=== PATIENT | female | born 1950 | race Caucasian/White ===

== ENCOUNTER 2017-09-21 19:44 | Emergency (ER) | payer MEDICARE ==
[~2017-09-21] VITALS: Ht 157.5 cm; Wt 90.7 kg
[2017-09-21 20:26] LABS: BASOPHILS ABSOLUTE AUTO 0.04 K/mm3 (0.00-0.23); BASOPHILS PERCENT AUTO 0 % (0-2); EOSINOPHILS ABSOLUTE AUTO 0.23 K/mm3 (0.00-0.68); EOSINOPHILS PERCENT AUTO 2 % (0-6); Hemoglobin 12.9 g/dL (11.5-16.0); IMMATURE GRAN ABSOLUTE AUTO 0.03 K/mm3 (0.00-0.10); IMMATURE GRAN PERCENT AUTO 0 % (0-1); LYMPHOCYTES ABSOLUTE AUTO 1.95 K/mm3 (0.84-5.20); LYMPHOCYTES PERCENT AUTO 16 % (21-46); MONOCYTES ABSOLUTE AUTO 0.79 K/mm3 (0.16-1.47); MONOCYTES PERCENT AUTO 7 % (4-13); Mean Corpuscular HGB 29.2 pg (26.0-34.0); Mean Corpuscular HGB Conc 32.3 g/dL (31.5-36.5); Mean Corpuscular Volume 91 fL (80-100); Mean Platelet Volume 10.6 fL (9.1-12.4); NEUTROPHILS ABSOLUTE AUTO 8.95 K/mm3 (1.96-9.15); NEUTROPHILS PERCENT AUTO 75 % (41-73); Platelet Count 278 K/mm3 (150-400); RDW Coefficient Variation 13.1 % (11.7-14.2); RDW Standard Deviation 43.1 fL (35.1-46.3); Red Blood Cell Count 4.42 M/mm3 (3.80-5.20); White Blood Cell Count 11.99 K/mm3 (4.00-11.30)
[2017-09-21 20:44] LABS: Alanine Aminotransfer (ALT/SGP 82 U/L (12-78); Albumin, Blood 3.9 g/dL (3.4-5.0); Albumin/Globulin Ratio 0.9 (0.8-1.8); Alk Phos 121 U/L (50-136); Anion Gap 10 mmol/L (6-16); Aspartate Aminotrans (AST/SGOT 43 U/L (12-37); Blood Urea Nitrogen 8 mg/dL (8-24); Bun/Creatinine Ratio 12.7 (12.0-20.0); CO2, Blood 25 mmol/L (21-32); Calcium, Blood 9.1 mg/dL (8.5-10.1); Chloride, Blood 105 mmol/L (98-108); Creatinine, Blood 0.63 mg/dL (0.40-1.00); Globulin, Blood 4.2 g/dL (2.2-4.0); Glomerular Filtration Rate >60 (60-); Glucose, Blood 94 mg/dL (70-99); Potassium, Blood 3.8 mmol/L (3.5-5.5); Sodium, Blood 140 mmol/L (136-145); Total Protein, Blood 8.1 g/dL (6.4-8.2)
[2017-09-21] MEDS ORDERED: ATOR10 (21:25)
[2017-09-21] MEDS ORDERED: Zantac150 MG (21:25)
[2017-09-21] MEDS ORDERED: CELE200 (21:26)
[2017-09-21] MEDS ORDERED: ZOLP5 (21:26)
[2017-09-21] MEDS ORDERED: Aspir 8181 MG (21:26)
[2017-09-21] MEDS ORDERED: CETI5 (21:27)
[2017-09-21 22:46] LABS: Source, Urine Clean Catch
[2017-09-21 22:49] LABS: Bilirubin, Urine Neg (Neg); Blood, Urine Neg (Neg); Glucose Qualitative, Urine Neg (Neg); Ketones, Urine 3+ (Neg); Leukocyte Esterase, Urine Neg (Neg); Nitrite, Urine Neg (Neg); Protein, Urine Neg (Neg); Specific Gravity, Urine 1.015 (1.003-1.022); Urobilinogen, Urine NORM (Normal); pH, Urine 6.5 (5.0-8.0)
[2017-09-21 22:55] LABS: Appearance, Urine Clear (Clear); Color, Urine Pale Yellow (P-Yellow)
[2017-09-22] MEDS ORDERED: Zofran Odt4 MG PO (00:29)
[2017-09-22] MEDS ORDERED: Norco 5-325 Ta1 EACH PO (00:29)
[2017-09-22] MEDS ORDERED: Augmentin 875-1 EACH PO (00:29)
== END 2017-09-22 00:55 | disposition home or self-care (01) ==
LOC: ER 19:44
PROVIDERS: Emergency Medicine
DX: K57.32 Diverticulitis of large intestine without perforation or abscess without bleeding (principal); Z88.2 Allergy status to sulfonamides; Z91.048 Other nonmedicinal substance allergy status; Z88.5 Allergy status to narcotic agent; Z79.899 Other long term (current) drug therapy; Z79.82 Long term (current) use of aspirin; Z79.2 Long term (current) use of antibiotics
CPT/HCPCS: 74177; 80053; 81003; 83690; 85025; 96361; 96374; 96375; 99284; J2405; J3010; J7030; Q9967

== ENCOUNTER → 2018-04-27 | Outpatient (CLI) | payer MEDICARE ==
[~2018-04-27] MED LIST: ATOR10; Aspir 8181 MG; Augmentin 875-1 EACH PO; CELE200; CETI5; Norco 5-325 Ta1 EACH PO; ZOLP5; Zantac150 MG; Zofran Odt4 MG PO
== END | disposition home or self-care (01) ==
LOC: LAB SHORT 11:16 → PLD 11:16
DX: D22.5 Melanocytic nevi of trunk (principal)
CPT/HCPCS: 88305; 88342

== ENCOUNTER → 2018-04-28 | Outpatient (CLI) | payer MEDICARE | END | disposition home or self-care (01) | LOC: LAB SHORT 08:00 → LAB EV 08:00 | DX: R30.0 Dysuria (principal) | CPT/HCPCS: 87077; 87086; 87186 ==

== ENCOUNTER → 2018-05-31 | Outpatient (CLI) | payer MEDICARE | END | disposition home or self-care (01) | LOC: PLD 15:45 → LAB SHORT 15:45 | DX: C43.59 Malignant melanoma of other part of trunk (principal) | CPT/HCPCS: 88305 ==

== ENCOUNTER → 2018-09-13 | Outpatient (CLI) | payer MEDICARE ==
[~2018-09-13] MED LIST changes: +ABAT250V; +TRAZ50
== END | disposition home or self-care (01) ==
LOC: LAB EV 12:10 → LAB SHORT 12:10
DX: R30.0 Dysuria (principal)
CPT/HCPCS: 87086

== ENCOUNTER 2018-09-14 12:13 | Day surgery (SDC) | payer MEDICARE ==
[~2018-09-14] VITALS: Ht 157.5 cm; Wt 87.7 kg
[~2018-09-14 12:13] MED LIST changes: -ABAT250V; -TRAZ50
[2018-09-14] MEDS ORDERED: TRAZ50 (13:11)
[2018-09-14] MEDS ORDERED: ABAT250V (13:11)
--- NOTE | 2018-09-14 16:01 | NUR ---
09/14/18 1601 Alie Awan (Amina UPON WAKING IN PROCEDURE ROOM, PT PULLED IV OUT OF RIGHT HAND. ENTIRE CATHETER AND CORRELATING PIECES WERE INTACT WITHOUT TEARING OR BREAKING OFF. PRESSURE APPLIED TO SITE WHILE GAUZE & COBAN WAS APPLIED. PT DENIED PAIN OR SORENESS AFTER ASSESSMENT IN PT'S ROOM.
== END 2018-09-14 15:40 | disposition home or self-care (01) ==
LOC: ORSCSDS 12:13
PROVIDERS: Internal Medicine Gastroenterology
PROC: 0DBM8ZX Excision of Descending Colon, Via Natural or Artificial Opening Endoscopic, Diagnostic (ICD-10-PCS; principal; 2018-09-14 13:30)
PROC: 0DBH8ZX Excision of Cecum, Via Natural or Artificial Opening Endoscopic, Diagnostic (ICD-10-PCS; principal; 2018-09-14 13:30)
PROC: 0DBK8ZX Excision of Ascending Colon, Via Natural or Artificial Opening Endoscopic, Diagnostic (ICD-10-PCS; principal; 2018-09-14 13:30)
PROC: 0DBL8ZX Excision of Transverse Colon, Via Natural or Artificial Opening Endoscopic, Diagnostic (ICD-10-PCS; principal; 2018-09-14 13:30)
PROC: 0DB68ZX Excision of Stomach, Via Natural or Artificial Opening Endoscopic, Diagnostic (ICD-10-PCS; 2018-09-14 13:30)
PROC: 0D758ZZ Dilation of Esophagus, Via Natural or Artificial Opening Endoscopic (ICD-10-PCS; 2018-09-14 13:30)
PROC: 0DB58ZX Excision of Esophagus, Via Natural or Artificial Opening Endoscopic, Diagnostic (ICD-10-PCS; 2018-09-14 13:30)
DX: R13.10 Dysphagia, unspecified (principal); D12.3 Benign neoplasm of transverse colon; D12.2 Benign neoplasm of ascending colon; K63.5 Polyp of colon; Z80.0 Family history of malignant neoplasm of digestive organs; Z86.010 Personal history of colon polyps; K21.9 Gastro-esophageal reflux disease without esophagitis; E78.5 Hyperlipidemia, unspecified; K57.30 Diverticulosis of large intestine without perforation or abscess without bleeding; K64.8 Other hemorrhoids; K64.4 Residual hemorrhoidal skin tags; Z87.891 Personal history of nicotine dependence; Z79.899 Other long term (current) drug therapy
CPT/HCPCS: 88305; 88341; 88342; J2704; J7120

== ENCOUNTER → 2019-01-14 | Outpatient (CLI) | payer MEDICARE ==
[~2019-01-14] MED LIST changes: +ABAT250V; +ACET325 PO; +ALBU90OI INH; -Aspir 8181 MG; +Aspir 8181 MG PO; +B-121000 MCG PO; +CEFD300 PO; -CETI5; +Flonase 0.05% N16 GM; +Florastor250 MG PO; +LORA.5 PO; +TRAZ50 PO; +TUMERIC 500 MG PO; +VITAMIN D31000 UNI2 PO; +Zantac150 MG PO; +Zyrtec10 MG PO
[2019-01-14 17:26] LABS: BASOPHILS ABSOLUTE AUTO 0.03 K/mm3 (0.00-0.23); BASOPHILS PERCENT AUTO 0 % (0-2); EOSINOPHILS ABSOLUTE AUTO 0.06 K/mm3 (0.00-0.68); EOSINOPHILS PERCENT AUTO 1 % (0-6); Hemoglobin 11.9 g/dL (11.5-16.0); IMMATURE GRAN ABSOLUTE AUTO 0.05 K/mm3 (0.00-0.10); IMMATURE GRAN PERCENT AUTO 1 % (0-1); LYMPHOCYTES ABSOLUTE AUTO 0.83 K/mm3 (0.84-5.20); LYMPHOCYTES PERCENT AUTO 8 % (21-46); MONOCYTES ABSOLUTE AUTO 0.74 K/mm3 (0.16-1.47); MONOCYTES PERCENT AUTO 7 % (4-13); Mean Corpuscular HGB Conc 33.1 g/dL (31.5-36.5); Mean Corpuscular Volume 88 fL (80-100); Mean Platelet Volume 10.9 fL (9.1-12.4); NEUTROPHILS ABSOLUTE AUTO 8.96 K/mm3 (1.96-9.15); NEUTROPHILS PERCENT AUTO 84 % (41-73); Platelet Count 229 K/mm3 (150-400); RDW Coefficient Variation 13.6 % (11.7-14.2); White Blood Cell Count 10.67 K/mm3 (4.00-11.30)
[2019-01-14 17:41] LABS: Albumin, Blood 2.8 g/dL (3.4-5.0); Albumin/Globulin Ratio 0.5 (0.8-1.8); Bilirubin, Total 1.3 mg/dL (0.1-1.0); Bun/Creatinine Ratio 8.7 (12.0-20.0); Calcium, Blood 8.7 mg/dL (8.5-10.1); Creatinine, Blood 1.26 mg/dL (0.40-1.00); Globulin, Blood 5.1 g/dL (2.2-4.0); Potassium, Blood 3.6 mmol/L (3.5-5.5); Total Protein, Blood 7.9 g/dL (6.4-8.2)
== END | disposition home or self-care (01) ==
LOC: LAB EV 17:21 → LAB SHORT 17:21
PROVIDERS: Physician Assistant Medical
DX: R50.9 Fever, unspecified (principal); R00.0 Tachycardia, unspecified
CPT/HCPCS: 80053; 85025; 87040; 87186

== ENCOUNTER 2019-01-15 09:07 | Inpatient (IN) | payer MEDICARE ==
[~2019-01-15] VITALS: Ht 157.5 cm; Wt 89.8 kg
[~2019-01-15 09:07] MED LIST changes: -ACET325 PO; -ALBU90OI INH; -Aspir 8181 MG PO; -B-121000 MCG PO; -CEFD300 PO; -Flonase 0.05% N16 GM; -Florastor250 MG PO; -LORA.5 PO; -TUMERIC 500 MG PO; -VITAMIN D31000 UNI2 PO; -Zyrtec10 MG PO
[2019-01-15 10:35] LABS: BASOPHILS ABSOLUTE AUTO 0.03 K/mm3 (0.00-0.23); BASOPHILS PERCENT AUTO 0 % (0-2); EOSINOPHILS ABSOLUTE AUTO 0.11 K/mm3 (0.00-0.68); EOSINOPHILS PERCENT AUTO 1 % (0-6); Hematocrit 35.6 % (33.0-51.0); Hemoglobin 11.5 g/dL (11.5-16.0); IMMATURE GRAN ABSOLUTE AUTO 0.05 K/mm3 (0.00-0.10); IMMATURE GRAN PERCENT AUTO 1 % (0-1); LYMPHOCYTES ABSOLUTE AUTO 0.83 K/mm3 (0.84-5.20); LYMPHOCYTES PERCENT AUTO 8 % (21-46); MONOCYTES ABSOLUTE AUTO 1.15 K/mm3 (0.16-1.47); MONOCYTES PERCENT AUTO 11 % (4-13); Mean Corpuscular HGB 28.7 pg (26.0-34.0); Mean Corpuscular HGB Conc 32.3 g/dL (31.5-36.5); Mean Corpuscular Volume 89 fL (80-100); Mean Platelet Volume 10.7 fL (9.1-12.4); NEUTROPHILS ABSOLUTE AUTO 8.26 K/mm3 (1.96-9.15); NEUTROPHILS PERCENT AUTO 79 % (41-73); Platelet Count 227 K/mm3 (150-400); RDW Coefficient Variation 13.7 % (11.7-14.2); RDW Standard Deviation 44.9 fL (35.1-46.3); Red Blood Cell Count 4.01 M/mm3 (3.80-5.20); White Blood Cell Count 10.43 K/mm3 (4.00-11.30)
[2019-01-15 10:52] LABS: Albumin, Blood 2.6 g/dL (3.4-5.0); Albumin/Globulin Ratio 0.6 (0.8-1.8); Bilirubin, Total 0.9 mg/dL (0.1-1.0); Bun/Creatinine Ratio 10.7 (12.0-20.0); Calcium, Blood 8.7 mg/dL (8.5-10.1); Creatinine, Blood 1.12 mg/dL (0.40-1.00); Globulin, Blood 4.7 g/dL (2.2-4.0); Potassium, Blood 2.9 mmol/L (3.5-5.5); Total Protein, Blood 7.3 g/dL (6.4-8.2)
[2019-01-15 11:01] LABS: Source, Urine Clean Catch
[2019-01-15 11:06] LABS: Appearance, Urine Hazy (Clear); Bilirubin, Urine Neg (Neg); Blood, Urine 2+ (Neg); Color, Urine Yellow (P-Yellow); Glucose Qualitative, Urine Neg (Neg); Ketones, Urine 3+ (Neg); Leukocyte Esterase, Urine 3+ (Neg); Nitrite, Urine Neg (Neg); Protein, Urine 3+ (Neg); Urobilinogen, Urine NORM (Normal); pH, Urine 6.5 (5.0-8.0)
[2019-01-15 11:52] LABS: Amorphous Light (0-Heavy); Bacteria Few /hpf; Mucus Light (0-Heavy); Squamous Epithelial Cells Mod /hpf (Few)
[2019-01-15] MEDS ORDERED: Aspir 8181 MG PO (12:43)
[2019-01-15] MEDS ORDERED: Zyrtec10 MG PO (12:44)
[2019-01-15] MEDS ORDERED: TUMERIC 500 MG PO (12:45)
[2019-01-15] MEDS ORDERED: VITAMIN D31000 UNI2 PO (12:45)
[2019-01-15] MEDS ORDERED: Flonase 0.05% N16 GM (12:46)
[2019-01-15] MEDS ORDERED: B-121000 MCG PO (12:46)
--- NOTE | 2019-01-15 17:15 | NUR ---
SHIFT SUMMARY: PT ADMITTED FROM THE ED THIS AFTERNOON AFTER RECEIVING LAB RESULTS FROM A VISIT WITH HER PCP. SHE HAS IV FLUIDS RUNNING STARTED IN THE ED AND HER IV IS PATENT. PT IS A/O X 4 AND IND IN HER ROOM TO WALK TO THE BATHROOM. HER FAMILY IS AT THE BEDSIDE. PT HAS NO C/O PAIN AND IS VERY COOPERATIVE WITH CARE. PT WAS ORIENTED TO ROOM AND NURSING STAFF. PT USES CALL LIGHT FOR HELP WHEN NEEDED.
[2019-01-16 05:06] LABS: Hematocrit 31.5 % (33.0-51.0); Hemoglobin 10.1 g/dL (11.5-16.0); Mean Corpuscular HGB 28.1 pg (26.0-34.0); Mean Corpuscular HGB Conc 32.1 g/dL (31.5-36.5); Mean Corpuscular Volume 88 fL (80-100); Platelet Count 227 K/mm3 (150-400); RDW Coefficient Variation 14.2 % (11.7-14.2); Red Blood Cell Count 3.59 M/mm3 (3.80-5.20); White Blood Cell Count 11.73 K/mm3 (4.00-11.30)
[2019-01-16 05:27] LABS: Alanine Aminotransfer (ALT/SGP 28 U/L (12-78); Albumin, Blood 2.2 g/dL (3.4-5.0); Albumin/Globulin Ratio 0.5 (0.8-1.8); Alk Phos 279 U/L (50-136); Anion Gap 7 mmol/L (6-16); Aspartate Aminotrans (AST/SGOT 22 U/L (12-37); Bilirubin, Total 0.8 mg/dL (0.1-1.0); Blood Urea Nitrogen 11 mg/dL (8-24); Bun/Creatinine Ratio 12.7 (12.0-20.0); CO2, Blood 19 mmol/L (21-32); Calcium, Blood 7.6 mg/dL (8.5-10.1); Chloride, Blood 110 mmol/L (98-108); Creatinine, Blood 0.87 mg/dL (0.40-1.00); Globulin, Blood 4.5 g/dL (2.2-4.0); Glomerular Filtration Rate >60 (60-); Glucose, Blood 102 mg/dL (70-99); Sodium, Blood 136 mmol/L (136-145); Total Protein, Blood 6.7 g/dL (6.4-8.2)
--- NOTE | 2019-01-16 07:52 | NUR ---
01/16/19 0600 VERY ANXIOUS PT AND BLOOD PRESSURE RISES WHEN SHE IS ANXIOUS. STATES SHE IS ANXIOUS ABOUT CURRENT ILLNESS AND BEING IN THE HOSPITAL. REFER TO MAR FOR MEDS GIVEN FOR ANXIETY. OTHERWISE PT STATES SHE FEELS BETTER THAN YESTERDAY.
--- NOTE | 2019-01-16 18:45 | NUR ---
SHIFT SUMMARY PATIENT IS ORIENTED X4 AND COOPERTIVE WITH CARE. SHE HAS ANXIETY AND HIGH BPS, BP IMPROVED AFTER GIVING ATIVAN. PT C/O INCREASED COUGHING AND SOME INTERMITTENT AUDIBLE WHEEZE SOUNDS. DR FIGUEROA NOTIFIED, CXR, NEBS, AND ATARAX ORDERED. PT STATES IT IS MORE LIKE MUCOUS IN HER THROAT, ONCE AFTER COUGHING ON MUCOUS SHE VOMITED, ZOFRAN GIVEN. TYLENOL GIVEN ONCE FOR HEADACHE. PT IS WEAKER BUT AMBULATES TO BATHROOM INDEPENDENTLY, FAMILY IN ROOM MOST OF DAY. A BLOOD CULTURE RESULTED IN POSITIVE COCCI IN CLUSTERS, DR FIGUEROA NOTIFIED.
--- NOTE | 2019-01-17 05:03 | NUR ---
shift summary. Pt has recieved ativan x 2 for anxiety last pm. Slept well after getting ativan . Pt also recieved tylenol for headache with adequate relief. Anticipating a possible d/c this am.
[2019-01-17 05:22] LABS: BASOPHILS ABSOLUTE AUTO 0.06 K/mm3 (0.00-0.23); BASOPHILS PERCENT AUTO 1 % (0-2); EOSINOPHILS ABSOLUTE AUTO 0.36 K/mm3 (0.00-0.68); EOSINOPHILS PERCENT AUTO 3 % (0-6); Hemoglobin 10.3 g/dL (11.5-16.0); IMMATURE GRAN ABSOLUTE AUTO 0.15 K/mm3 (0.00-0.10); IMMATURE GRAN PERCENT AUTO 1 % (0-1); LYMPHOCYTES PERCENT AUTO 13 % (21-46); MONOCYTES ABSOLUTE AUTO 0.85 K/mm3 (0.16-1.47); MONOCYTES PERCENT AUTO 7 % (4-13); Mean Corpuscular HGB 28.9 pg (26.0-34.0); Mean Corpuscular HGB Conc 32.2 g/dL (31.5-36.5); Mean Corpuscular Volume 90 fL (80-100); Mean Platelet Volume 10.4 fL (9.1-12.4); NEUTROPHILS ABSOLUTE AUTO 9.05 K/mm3 (1.96-9.15); NEUTROPHILS PERCENT AUTO 75 % (41-73); Platelet Count 279 K/mm3 (150-400); RDW Coefficient Variation 14.9 % (11.7-14.2); RDW Standard Deviation 49.4 fL (35.1-46.3); Red Blood Cell Count 3.57 M/mm3 (3.80-5.20); White Blood Cell Count 12.07 K/mm3 (4.00-11.30)
[2019-01-17 05:39] LABS: Anion Gap 7 mmol/L (6-16); Blood Urea Nitrogen 8 mg/dL (8-24); Bun/Creatinine Ratio 10.1 (12.0-20.0); CO2, Blood 20 mmol/L (21-32); Calcium, Blood 8.3 mg/dL (8.5-10.1); Chloride, Blood 109 mmol/L (98-108); Creatinine, Blood 0.79 mg/dL (0.40-1.00); Glomerular Filtration Rate >60 (60-); Glucose, Blood 130 mg/dL (70-99); Potassium, Blood 4.6 mmol/L (3.5-5.5); Sodium, Blood 136 mmol/L (136-145)
--- NOTE | 2019-01-17 10:00 | NUR ---
PT REPORTS FEELING BETTER THAN WHEN SHE FIRST CAME TO THE HOSPITAL. UP TO BATHROOM INDEPENDENTLY OR WITH FAMILY HELPING HER. IV FLUIDS COMPLETED.
[2019-01-17] MEDS ORDERED: ACET325 PO (14:24)
[2019-01-17] MEDS ORDERED: LORA.5 PO (14:24)
[2019-01-17] MEDS ORDERED: ALBU90OI INH (14:25)
[2019-01-17] MEDS ORDERED: Florastor250 MG PO (14:25)
[2019-01-17] MEDS ORDERED: CEFD300 PO (14:25)
--- NOTE | 2019-01-17 14:30 | NUR ---
CALLED MD ABOUT PTS IV INFILTRATING AND WHETHER OTHER OPTIONS WERE AVAILABLE FOR MED PRIOR TO DISCHARGE. IM ROCEPHIN OFFERED AND PT AGREEABLE. SPOKE WITH [facility] ON THE PHONE BECAUSE PT DID RECEIVE APPROX HALF OF HER ANTIBIOTIC PRIOR TO INFILTRATION.
--- NOTE | 2019-01-17 16:20 | NUR ---
DISCHARGE INSTRUCTIONS COMPLETED AND DISCUSSED WITH PT EXPRESSING UNDERSTANDING. SCRIPTS FAXED TO [facility] AND ATIVAN SCRIPT GIVEN TO PT. TO [facility] VIA W/C AFTER ROCEPHIN INJECTION GIVEN.
== END 2019-01-17 16:15 | disposition home or self-care (01) | DRG 690 ==
LOC: ER 09:07 → MEDS 15:26
PROVIDERS: Emergency Medicine; ADMIT Family Medicine
DX: N39.0 Urinary tract infection, site not specified (principal); R78.81 Bacteremia; B96.20 Unspecified Escherichia coli [E. coli] as the cause of diseases classified elsewhere; E87.6 Hypokalemia; E86.9 Volume depletion, unspecified; I10 Essential (primary) hypertension; J30.9 Allergic rhinitis, unspecified; E78.5 Hyperlipidemia, unspecified; Z88.2 Allergy status to sulfonamides; Z87.891 Personal history of nicotine dependence
CPT/HCPCS: 36415; 71046; 76770; 80048; 80053; 81001; 83605; 85025; 85027; 87040; 87086; 94640; 94760; 96361; 96365; 99284-25; A9270; J0696; J1650; J2001; J2405; J3480; J7030

== ENCOUNTER 2019-03-14 06:47 | Day surgery (SDC) | payer MEDICARE ==
[~2019-03-14] VITALS: Ht 157.5 cm; Wt 88.8 kg
[~2019-03-14 06:47] MED LIST changes: +ACET325 PO; +ALBU90OI INH; +Aspir 8181 MG PO; +B-121000 MCG PO; +CEFD300 PO; +Flonase 0.05% N16 GM; +Florastor250 MG PO; +LORA.5 PO; +TUMERIC 500 MG PO; +VITAMIN D31000 UNI2 PO; +Zyrtec10 MG PO
[2019-03-14] MEDS ORDERED: Cipro500 MG PO (07:20)
[2019-03-14] MEDS ORDERED: METR500 PO (07:22)
== END 2019-03-14 08:45 | disposition home or self-care (01) ==
LOC: ORSCSDS 06:47
PROVIDERS: Ophthalmology
PROC: 08RK3JZ Replacement of Left Lens with Synthetic Substitute, Percutaneous Approach (ICD-10-PCS; principal; 2019-03-14 08:00)
DX: H25.12 Age-related nuclear cataract, left eye (principal); H18.51 Endothelial corneal dystrophy; E66.8 Other obesity; Z68.35 Body mass index [BMI] 35.0-35.9, adult; Z79.82 Long term (current) use of aspirin; Z79.899 Other long term (current) drug therapy
CPT/HCPCS: J2001; J2250; J3010; J3301; J7120; V2632

== ENCOUNTER 2019-05-23 07:32 | Day surgery (SDC) | payer MEDICARE ==
[~2019-05-23] VITALS: Ht 157.5 cm; Wt 191.4 kg
[~2019-05-23 07:32] MED LIST changes: +Cipro500 MG PO; +METR500 PO
== END 2019-05-23 09:45 | disposition home or self-care (01) ==
LOC: ORSCSDS 07:32
PROVIDERS: Ophthalmology
PROC: 08RJ3JZ Replacement of Right Lens with Synthetic Substitute, Percutaneous Approach (ICD-10-PCS; principal; 2019-05-23 09:00)
DX: H25.11 Age-related nuclear cataract, right eye (principal); H18.51 Endothelial corneal dystrophy; K21.9 Gastro-esophageal reflux disease without esophagitis; F32.9 Major depressive disorder, single episode, unspecified; Z79.899 Other long term (current) drug therapy; E66.01 Morbid (severe) obesity due to excess calories; Z68.35 Body mass index [BMI] 35.0-35.9, adult
CPT/HCPCS: J2001; J2250; J3010; J3301; J7120; V2632

== ENCOUNTER → 2020-10-21 | Outpatient (CLI) | payer MEDICARE | END | disposition home or self-care (01) | LOC: LAB SHORT 10:41 | DX: R30.9 Painful micturition, unspecified (principal) | CPT/HCPCS: 87077; 87086; 87186 ==

== ENCOUNTER → 2020-12-28 | Outpatient (CLI) | payer MEDICARE | LOC: LAB 14:00 → LAB SHORT 14:00 | DX: R30.0 Dysuria (principal) | CPT/HCPCS: 87077; 87086; 87186 ==

== ENCOUNTER 2022-01-20 11:02 | Day surgery (SDC) | payer MEDICARE ==
[~2022-01-20] VITALS: Ht 157.5 cm; Wt 72.6 kg
[2022-01-20] MEDS ORDERED: ATOR10 (12:30)
--- NOTE | 2022-01-20 15:09 | NUR ---
01/20/22 1509 SHEKHAR DOWNS IV DCD IN STEPDOWN POST VS ASSESSMENTS.
== END 2022-01-20 15:00 | disposition home or self-care (01) ==
LOC: ORSCSDS 11:02
PROVIDERS: Internal Medicine Gastroenterology
PROC: 0DBL8ZX Excision of Transverse Colon, Via Natural or Artificial Opening Endoscopic, Diagnostic (ICD-10-PCS; principal; 2022-01-20 12:30)
PROC: 0DBK8ZX Excision of Ascending Colon, Via Natural or Artificial Opening Endoscopic, Diagnostic (ICD-10-PCS; principal; 2022-01-20 12:30)
DX: Z12.11 Encounter for screening for malignant neoplasm of colon (principal); D12.2 Benign neoplasm of ascending colon; D12.3 Benign neoplasm of transverse colon; Z86.010 Personal history of colon polyps; K64.8 Other hemorrhoids; K57.51 Diverticulosis of both small and large intestine without perforation or abscess with bleeding; K21.9 Gastro-esophageal reflux disease without esophagitis; E78.5 Hyperlipidemia, unspecified; Z79.82 Long term (current) use of aspirin; Z79.899 Other long term (current) drug therapy; Z87.891 Personal history of nicotine dependence
CPT/HCPCS: 88305; J2704; J7120

== ENCOUNTER 2024-12-28 15:33 | Emergency (ER) | payer MEDICARE ==
[~2024-12-28] VITALS: Ht 157.5 cm; Wt 86.6 kg
[2024-12-28 15:49] VITALS: BP 186/92
[2024-12-28] MEDS ORDERED: Ketorolac Tromethamine 15mg Vial IV ONE (15:55)
[2024-12-28 16:39] LABS: Source, Urine Clean Catch
[2024-12-28 16:42] LABS: Bilirubin, Urine Neg (Neg); Glucose Qualitative, Urine Neg (Neg); Ketones, Urine Neg (Neg); Leukocyte Esterase, Urine 1+ (Neg); Protein, Urine Neg (Neg); Specific Gravity, Urine 1.005 (1.003-1.022); Urobilinogen, Urine NORM (Normal)
[2024-12-28 16:51] LABS: Color, Urine Pale Yellow (P-Yellow)
[2024-12-28 16:53] LABS: Red Blood Cells, Urine 0-2 /hpf (0-2)
[2024-12-28 17:00] LABS: BASOPHILS ABSOLUTE AUTO 0.04 K/mm3 (0.00-0.23); BASOPHILS PERCENT AUTO 0 % (0-2); EOSINOPHILS ABSOLUTE AUTO 0.23 K/mm3 (0.00-0.68); EOSINOPHILS PERCENT AUTO 2 % (0-6); Hematocrit 38.5 % (33.0-51.0); Hemoglobin 12.5 g/dL (11.5-16.0); IMMATURE GRAN ABSOLUTE AUTO 0.04 K/mm3 (0.00-0.10); IMMATURE GRAN PERCENT AUTO 0 % (0-1); LYMPHOCYTES ABSOLUTE AUTO 2.05 K/mm3 (0.84-5.20); LYMPHOCYTES PERCENT AUTO 18 % (21-46); MONOCYTES ABSOLUTE AUTO 0.81 K/mm3 (0.16-1.47); MONOCYTES PERCENT AUTO 7 % (4-13); Mean Corpuscular HGB Conc 32.5 g/dL (31.5-36.5); Mean Corpuscular Volume 87 fL (80-100); NEUTROPHILS ABSOLUTE AUTO 8.06 K/mm3 (1.96-9.15); NEUTROPHILS PERCENT AUTO 72 % (41-73); NRBC ABSOLUTE 0.00 K/mm3 (0.00-0.02); NRBC Auto 0.0 /100 WBC (0.0-0.2); Platelet Count 263 K/mm3 (150-400); RDW Coefficient Variation 14.4 % (11.7-14.2); RDW Standard Deviation 45.8 fL (35.1-46.3)
[2024-12-28 17:18] LABS: Alanine Aminotransfer (ALT/SGP 42.0 U/L (12-78); Albumin, Blood 3.8 g/dL (3.4-5.0); Albumin/Globulin Ratio 1.0 (0.8-1.8); Anion Gap 7.0 mmol/L (3-11); Aspartate Aminotrans (AST/SGOT 26.0 U/L (12-37); Bilirubin, Total 0.6 mg/dL (0.1-1.0); Blood Urea Nitrogen 11.0 mg/dL (8-24); CO2, Blood 27.0 mmol/L (21-32); Calcium, Blood 9.0 mg/dL (8.5-10.1); Chloride, Blood 102.0 mmol/L (98-108); Creatinine, Blood 0.61 mg/dL (0.40-1.00); Globulin, Blood 4.0 g/dL (2.2-4.0); Glucose, Blood 101.0 mg/dL (70-99); Potassium, Blood 3.5 mmol/L (3.5-5.5); Sodium, Blood 132.0 mmol/L (136-145); Total Protein, Blood 7.8 g/dL (6.4-8.2)
[2024-12-28] MEDS ORDERED: AMOCLA875 PO (17:52)
== END 2024-12-28 18:15 | disposition home or self-care (01) ==
LOC: ER 15:33
PROVIDERS: Physician Assistant
DX: K57.32 Diverticulitis of large intestine without perforation or abscess without bleeding (principal); R03.0 Elevated blood-pressure reading, without diagnosis of hypertension
CPT/HCPCS: 74177; 80053; 81001; 85025; 87077; 87086; 87186; 96374-59; 99284-25; A9270; J1885; Q9967

== ENCOUNTER 2025-04-17 09:14 | Day surgery (SDC) | payer MEDICARE ==
[~2025-04-17] VITALS: Ht 157.5 cm; Wt 87.8 kg
[~2025-04-17 09:14] MED LIST changes: +AMOCLA875 PO; +Glycopyrrolate 0.2 MG/ML 1MLVIAL ONE; +Ondansetron HCl 2 MG / ML 2ML Vial ONE; +ePHEDrine Sulfate 50 MG/ML 1ML Injection ONE
[2025-04-17 11:52] VITALS: BP 152/114
--- NOTE | 2025-04-17 13:40 | NUR ---
04/17/25 1340 Rafi Pantoja IN PATHOLOGY REPORTED SPECIMEN JAR 3 LABELED "SIGMOID POLYP" WAS DELIVERED EMPTY. DR. BOWMAN WAS NOTIFIED.
== END 2025-04-17 12:00 | disposition home or self-care (01) ==
LOC: ORSCSDS 09:14
PROVIDERS: Internal Medicine Gastroenterology
PROC: 0DBL8ZX Excision of Transverse Colon, Via Natural or Artificial Opening Endoscopic, Diagnostic (ICD-10-PCS; principal; 2025-04-17 10:30)
PROC: 0DBH8ZX Excision of Cecum, Via Natural or Artificial Opening Endoscopic, Diagnostic (ICD-10-PCS; principal; 2025-04-17 10:30)
PROC: 0DBN8ZX Excision of Sigmoid Colon, Via Natural or Artificial Opening Endoscopic, Diagnostic (ICD-10-PCS; principal; 2025-04-17 10:30)
DX: Z12.11 Encounter for screening for malignant neoplasm of colon (principal); Z86.0101 Personal history of adenomatous and serrated colon polyps; Z80.0 Family history of malignant neoplasm of digestive organs; D12.0 Benign neoplasm of cecum; D12.3 Benign neoplasm of transverse colon; Z87.891 Personal history of nicotine dependence; E78.5 Hyperlipidemia, unspecified; K64.4 Residual hemorrhoidal skin tags; Z79.899 Other long term (current) drug therapy
CPT/HCPCS: 88305; J2003; J2405; J2704; J7120